=== PATIENT | male | born 1960 | race Caucasian/White ===

== ENCOUNTER 2016-12-24 21:25 | Inpatient (IN) | payer OTHER ==
[~2016-12-24] VITALS: Ht 175.3 cm; Wt 83.8 kg
[2016-12-24 21:57] LABS: HEMATOCRIT 41.4 % (38.0-50.0); MCH 28.6 PG (29.0-34.0); MCHC 33.1 G/DL (30.0-36.0); MCV 86.4 FL (86-99); MEAN PLAT.VOLUME 10.1 uM^3 (9.0-12.4); PLATELET COUNT 282 K/uL (156-360); RBC DIS.WIDTH-CV 12.4 % (11.8-14.6); RBC DIS.WIDTH-SD 39.5 % (39-53); RED BLOOD COUNT 4.79 M/uL (4.00-5.50); WHITE BLOOD COUNT 17.6 K/uL (4.1-10.2)
[2016-12-24 22:20] LABS: TROP-I INTERPRETATION NEGATIVE; TROPONIN-I < 0.01 ng/mL (0.0-0.30)
[2016-12-24 22:31] LABS: CHLORIDE 103 mEq/L (99-109); POTASSIUM 4.4 mEq/L (3.7-5.4); SODIUM 137 mEq/L (136-147)
[2016-12-24 22:32] LABS: GLUCOSE 142 mg/dL (70-99)
[2016-12-24 22:34] LABS: ANION GAP 9 MEQ/L (2-14)
[2016-12-24 22:36] LABS: GFR ESTIMATE (CALCULATED) > 59 mL/min/
[2016-12-24 22:37] LABS: UREA NITROGEN (BUN) 21 mg/dL (9-23)
[2016-12-24] MEDS ORDERED: VENTOLIN HFA18 GM IH (22:57)
[2016-12-24] MEDS ORDERED: MUCINEX FAST-M360 M1 PO (22:59)
[2016-12-24 23:24] LABS: TROP-I INTERPRETATION NEGATIVE; TROPONIN-I < 0.01 ng/mL (0.0-0.30)
[2016-12-24 23:59] LABS: ADD MIUA? YES; BILIRUBIN NEGATIVE; BLOOD SMALL; COLOR YELLOW ((YELLOW)); GLUCOSE (STRIP) NEGATIVE; KETONES NEGATIVE; LEUKOCYTES NEGATIVE; NITRITE NEGATIVE; PROTEIN (STRIP) NEGATIVE; SPECIFIC GRAVITY 1.032 (1.000-1.030); UROBILINOGEN 0.2 MG/DL (0.2-1.0)
[2016-12-25 00:11] LABS: BACTERIA NONE SEEN /HPF; EPITHELIAL CELLS NONE SEEN /HPF; MUCUS TRACE /LPF; UCUL ADDED? NO; WHITE BLOOD CELLS 0-5 /HPF (0-5)
[2016-12-25 00:26] LABS: INFLUENZA A VIRAL ANTIGEN NEGATIVE; INFLUENZA B VIRAL ANTIGEN NEGATIVE
[2016-12-25] MEDS ORDERED: VIRTUSSIN AC L473 ML PO (01:24)
[2016-12-25] MEDS ORDERED: PEDIALYTE1000 ML PO (01:24)
[2016-12-25] MEDS ORDERED: CENTRUM COMPLE1 EACH PO (01:24)
[2016-12-25] MEDS ORDERED: FISH OIL 1,001000 M1 PO (01:25)
[2016-12-25 04:03] VITALS: BP 130/66
[2016-12-25 08:26] LABS: INTERNAL CONTROL VALID? YES
[2016-12-25 08:30] VITALS: BP 114/57
[2016-12-25 09:57] LABS: BASOPHIL COUNT 0.1 K/uL (0-0.1); EOSINOPHIL COUNT 0.1 K/uL (0-0.3); HEMATOCRIT 37.4 % (38.0-50.0); IMMATURE GRANULOCYTE (%) 0.5 % (0.0-0.7); IMMATURE GRANULOCYTE COUNT 0.1 K/uL; INSTRUMENT ABS NEUTROPHIL CT 11.3 K/uL; LYMPHOCYTE COUNT 1.7 K/uL (1.0-2.8); MCH 28.5 PG (29.0-34.0); MCHC 31.8 G/DL (30.0-36.0); MCV 89.7 FL (86-99); MEAN PLAT.VOLUME 10.2 uM^3 (9.0-12.4); MONOCYTE COUNT 0.8 K/uL (0-0.8); NEUTROPHIL COUNT 11.3 K/uL (1.8-6.4); PLATELET COUNT 225 K/uL (156-360); RBC DIS.WIDTH-CV 12.8 % (11.8-14.6); RBC DIS.WIDTH-SD 42.3 % (39-53); RED BLOOD COUNT 4.17 M/uL (4.00-5.50); WHITE BLOOD COUNT 14.1 K/uL (4.1-10.2)
[2016-12-25 10:25] LABS: ANION GAP 7 MEQ/L (2-14); CHLORIDE 106 MEQ/L (99-109); GFR ESTIMATE (CALCULATED) > 59 mL/min/; GLUCOSE 127 mg/dL (70-99); POTASSIUM 4.3 MEQ/L (3.7-5.4); SAMPLE HEMOLYSIS CHECK 0; SAMPLE ICTERIC CHECK 0; SAMPLE LIPEMIA CHECK 0; SODIUM 140 MEQ/L (136-147); UREA NITROGEN (BUN) 17 mg/dL (9-23)
[2016-12-25 11:44] VITALS: BP 120/58
[2016-12-25 16:46] VITALS: BP 128/72
[2016-12-26 00:12] VITALS: BP 124/73
[2016-12-26 03:35] VITALS: BP 122/70
[2016-12-26 07:55] LABS: BASOPHIL COUNT 0.1 K/uL (0-0.1); EOSINOPHIL (%) 1.7 % (0-5); EOSINOPHIL COUNT 0.2 K/uL (0-0.3); HEMATOCRIT 39.6 % (38.0-50.0); IMMATURE GRANULOCYTE (%) 0.6 % (0.0-0.7); IMMATURE GRANULOCYTE COUNT 0.1 K/uL; INSTRUMENT ABS NEUTROPHIL CT 6.8 K/uL; LYMPHOCYTE COUNT 1.6 K/uL (1.0-2.8); MCH 28.8 PG (29.0-34.0); MCHC 32.3 G/DL (30.0-36.0); MEAN PLAT.VOLUME 10.6 uM^3 (9.0-12.4); MONOCYTE (%) 7.6 % (3-12); MONOCYTE COUNT 0.7 K/uL (0-0.8); NEUTROPHIL (%) 72.8 % (45-76); NEUTROPHIL COUNT 6.8 K/uL (1.8-6.4); PLATELET COUNT 228 K/uL (156-360); RBC DIS.WIDTH-CV 12.5 % (11.8-14.6); RBC DIS.WIDTH-SD 41.1 % (39-53); RED BLOOD COUNT 4.45 M/uL (4.00-5.50)
[2016-12-26 07:56] LABS: WHITE BLOOD COUNT 9.4 K/uL (4.1-10.2)
[2016-12-26 07:59] VITALS: BP 130/74
[2016-12-26 11:47] VITALS: BP 129/76
[2016-12-26 15:13] VITALS: BP 130/72
[2016-12-26 20:09] VITALS: BP 143/84
[2016-12-27] VITALS (7 sets, daily range): BP systolic 107–138; BP diastolic 68–87
[2016-12-27 17:10] LABS: C DIFF TOXIN NEGATIVE (NEGATIVE)
[2016-12-27 17:11] LABS: PROBE CHECK PASS; SPECIMEN PROCESSING CONTROL PASS
[2016-12-28 03:31] VITALS: BP 124/82
[2016-12-28 08:23] VITALS: BP 96/61
[2016-12-28 11:06] VITALS: BP 113/69
[2016-12-28] MEDS ORDERED: CEFDINIR300 MG PO (11:22)
== END 2016-12-28 15:58 | disposition home or self-care (01) | DRG 871 ==
LOC: EME 21:25 → 4SOUTH 12-25 02:19 → 5SOUTH 12-25 02:19 → EDOF 12-25 02:19 → 4SOUTH 12-25 03:29 → 5SOUTH 12-25 18:12
PROVIDERS: Emergency Medicine; Family Medicine; Nurse Practitioner Adult Health; Student in an Organized Health Care Education/Training Program
DX: A41.9 Sepsis, unspecified organism (principal); J18.0 Bronchopneumonia, unspecified organism; N17.9 Acute kidney failure, unspecified; E86.0 Dehydration; R73.9 Hyperglycemia, unspecified; J35.1 Hypertrophy of tonsils; R00.0 Tachycardia, unspecified; Z83.3 Family history of diabetes mellitus
CPT/HCPCS: 70491; 71020; 71275; 80048; 81003; 83605; 84484; 85025; 85027; 87040; 87070; 87205; 87449; 87493; 87502; 93005; 94667; 94668; 99202; 99281; 99285; J0456; J0696; J1650; J2270; J2405; J2543; J3370; J7030; J7050